=== PATIENT | female | born 1980 | race African-American/Black ===

== ENCOUNTER 2016-06-27 02:55 | Emergency (ER) | payer MEDICARE, MEDICAID ==
[~2016-06-27] VITALS: Ht 160 cm; Wt 58.0 kg
[~2016-06-27 02:55] MED LIST: FERR-63 PO; IBUP-779 PO; MULT-1146 PO
[2016-06-27 04:34] VITALS: BP 138/82
[2016-06-27] MEDS ORDERED: TRAMADOL 50MG TABLET PO ONE (04:45)
== END 2016-06-27 05:03 | disposition home or self-care (01) ==
LOC: ER 02:57
DX: S01.21XA Laceration without foreign body of nose, initial encounter (principal); W22.8XXA Striking against or struck by other objects, initial encounter; Y93.89 Activity, other specified; Y92.89 Other specified places as the place of occurrence of the external cause; Y99.8 Other external cause status
CPT/HCPCS: 99283

== ENCOUNTER 2016-09-28 02:27 | Emergency (ER) | payer MEDICARE, MEDICAID ==
[~2016-09-28] VITALS: Ht 160 cm; Wt 55.0 kg
[2016-09-28] MEDS ORDERED: METHYLPREDNISOLONE SOD SUCC 125 MG/2 ML VIAL IV ONE (05:15)
[2016-09-28] MEDS ORDERED: MAGNESIUM/ALUMINUM HYDROXIDE/SIMETHICONE 30ML UDC PO STA (05:52)
[2016-09-28] MEDS ORDERED: VISCOUS LIDOCAINE 2% 15 ML UDC PO STA (05:52)
[2016-09-28 06:14] VITALS: BP 121/84
[2016-09-28 06:23] LABS: INR 1.2
== END 2016-09-28 07:06 | disposition home or self-care (01) ==
LOC: ER 02:27
DX: L23.3 Allergic contact dermatitis due to drugs in contact with skin (principal); T45.0X5A Adverse effect of antiallergic and antiemetic drugs, initial encounter; Y92.89 Other specified places as the place of occurrence of the external cause
CPT/HCPCS: 36415; 71010; 81025; 83690; 85610; 96374; 99285; J2930